=== PATIENT | male | born 1940 ===

== ENCOUNTER 2021-11-15 12:00 | Inpatient (IN) ==
[2021-11-16] MEDS ORDERED: Ondansetron ODT 4 MG TAB.RAPDIS PO PRN (14:14)
[2021-11-16] MEDS: Gabapentin 300 MG CAPSULE PO SCH ×2 (17:26→21:21)
[2021-11-16] MEDS: ALPRAZolam 1 MG TABLET PO SCH ×2 (17:26→21:21)
[2021-11-16 20:40] LABS: Adenovirus Not Detected (Not Detect); Bordetella Pertussis Not Detected (Not Detect); Chlamydophila pneumoniae Not Detected (Not Detect); Coronavirus 229E Not Detected (Not Detect); Coronavirus HKU1 Not Detected (Not Detect); Coronavirus NL63 Not Detected (Not Detect); Coronavirus OC43 Not Detected (Not Detect); Human Metapneumovirus Not Detected (Not Detect); Human Rhinovirus/Enterovirus Not Detected (Not Detect); Influenza A Subtype 2009 H1 Not Detected (Not Detect); Influenza B Not Detected (Not Detect); Mycoplasma pneumoniae Not Detected (Not Detect); Parainfluenza Virus 1 Not Detected (Not Detect); Parainfluenza Virus 2 Not Detected (Not Detect); Parainfluenza Virus 3 Not Detected (Not Detect); Parainfluenza Virus 4 Not Detected (Not Detect); Respiratory Syncytial Virus Not Detected (Not Detect)
[2021-11-16 20:46] LABS: SARS-CoV-2 DETECTED (Not Detect)
[2021-11-16] MEDS: Cefdinir 300 MG CAPSULE PO SCH (21:21)
[2021-11-17 04:52] LABS: Basophils # 0.1 K/mcL (0.0-0.2); Basophils % 0.4 %; Eosinophils # 0.1 K/mcL (0.0-0.6); Eosinophils % 0.7 %; Hematocrit 41.9 % (37.5-50.1); Hemoglobin 13.9 g/dL (12.9-16.9); Immature Granulocytes % 2.7 % (0-4); Lymphocytes # 1.6 K/mcL (0.6-4.6); Lymphocytes % 13.7 %; Mean Corpuscular HGB Conc 33.2 g/dL (31.6-35.5); Mean Corpuscular Hemoglobin 29.9 pg (28.0-33.3); Mean Corpuscular Volume 90.1 fL (83.0-100.0); Mean Platelet Volume 10.3 fL (9.4-12.4); Monocytes # 0.8 K/mcL (0.0-1.3); Neutrophils # 8.5 K/mcL (1.6-8.9); Platelet Count 189 K/mcL (140-400); Red Blood Count 4.65 M/mcL (4.19-5.50); Red Cell Distribution Width 13.1 % (11.5-14.5); Segmented Neutrophils % 75.5 %; White Blood Count 11.3 K/mcL (4.3-11.1)
[2021-11-17 05:07] LABS: BUN/Creatinine Ratio 36 (6-26); Blood Urea Nitrogen 21 mg/dL (8-23); Calcium 8.7 mg/dL (8.6-10.3); Carbon Dioxide 30 mEq/L (23-29); Chloride 100 mEq/L (98-107); Glucose 150 mg/dL (70-105); Osmolality,Calculated 290 (280-300); Potassium 3.7 mEq/L (3.5-5.1); Sodium 137 mEq/L (136-145)
[2021-11-17] MEDS: *HR* Enoxaparin 40 MG/0.4 ML SYRINGE SQ SCH (06:23)
[2021-11-17 08:18] LABS: Ferritin 393 ng/mL (20-250)
[2021-11-17] MEDS: Gabapentin 300 MG CAPSULE PO SCH ×3 (08:35→21:05)
[2021-11-17] MEDS: ALPRAZolam 1 MG TABLET PO SCH ×3 (08:35→21:06)
[2021-11-17] MEDS: hydroCHLOROthiazide 25 MG TABLET PO SCH (08:35)
[2021-11-17] MEDS: Cefdinir 300 MG CAPSULE PO SCH ×2 (08:35→21:06)
[2021-11-17] MEDS: *HR* GlipiZIDE XL (24 HR) 10 MG TABLET PO SCH (08:36)
[2021-11-17] MEDS: lisinopriL 10 MG TABLET PO SCH (08:36)
[2021-11-17] MEDS: dexAMETHasone 4 MG TABLET PO SCH (08:36)
[2021-11-17] MEDS: Aspirin Enteric Coated 81 MG Tablet PO SCH (08:36)
[2021-11-17] MEDS: atenoloL 50 MG TABLET PO SCH (08:36)
[2021-11-17] MEDS: allopurinoL 300 MG TABLET PO SCH (08:36)
[2021-11-17 08:44] LABS: C-Reactive Protein 13 mg/L (Less than 10)
[2021-11-17] MEDS ORDERED: Dextrose Gel 15 GM/37.5 ML TUBE PO PRN ×2 (11:22)
[2021-11-17] MEDS ORDERED: *HR* Dextrose 50 % in Water (Syg) 50 ML SYRINGE IVP PRN (11:22)
[2021-11-17] MEDS ORDERED: D5% in Water 1,000 ML IVC PRN (11:22)
[2021-11-17] MEDS: Insulin LISPRO 300 UNITS/3 ML VIAL SUBQ SCH ×2 (12:46→16:36)
[2021-11-17 14:54] LABS: Campylobacter by PCR Not detected (Not detect)
[2021-11-17 14:57] LABS: C.difficile Toxin A/B Gene PCR DETECTED (Not detect)
[2021-11-17 14:58] LABS: Adenovirus F 40/41 PCR Not detected (Not detect); Astrovirus PCR Not detected (Not detect); Cryptosporidium by PCR Not detected (Not detect); Cyclospora cayetanensis PCR Not detected (Not detect); Entamoeba histolytica PCR Not detected (Not detect); Enteroaggregative E.coli(EAEC) Not detected (Not detect); Enteropathogenic E.coli(EPEC) Not detected (Not detect); Enterotoxigenic E.coli (ETEC) Not detected (Not detect); Giardia lamblia PCR Not detected (Not detect); Norovirus GI/GII PCR Not detected (Not detect); Plesiomonas shigelloides PCR Not detected (Not detect); Rotavirus A PCR Not detected (Not detect); Salmonella PCR Not detected (Not detect); Sapovirus PCR Not detected (Not detect); Shig/EnteroinvasiveE coli EIEC Not detected (Not detect); Shigalike tox-prod E coli STEC Not detected (Not detect); Vibrio PCR Not detected (Not detect); Vibrio cholerae PCR Not detected (Not detect); Yersinia enterocolitica PCR Not detected (Not detect)
[2021-11-17] MEDS: Vancomycin Oral Soln 125 MG/2.5 ML UDC PO SCH ×2 (17:33→21:06)
[2021-11-17] MEDS: Lactobacillus 1 EACH CAP.SPRINK PO SCH (21:06)
[2021-11-18] MEDS: *HR* Enoxaparin 40 MG/0.4 ML SYRINGE SQ SCH (06:54)
[2021-11-18] MEDS: Insulin LISPRO 300 UNITS/3 ML VIAL SUBQ SCH ×3 (08:57→18:29)
[2021-11-18] MEDS: allopurinoL 300 MG TABLET PO SCH (08:58)
[2021-11-18] MEDS: ALPRAZolam 1 MG TABLET PO SCH ×3 (08:58→21:42)
[2021-11-18] MEDS: Cefdinir 300 MG CAPSULE PO SCH ×2 (08:58→21:42)
[2021-11-18] MEDS: Gabapentin 300 MG CAPSULE PO SCH ×3 (08:58→21:42)
[2021-11-18] MEDS: hydroCHLOROthiazide 25 MG TABLET PO SCH (08:58)
[2021-11-18] MEDS: Vancomycin Oral Soln 125 MG/2.5 ML UDC PO SCH ×4 (08:58→21:42)
[2021-11-18] MEDS: dexAMETHasone 4 MG TABLET PO SCH (08:59)
[2021-11-18] MEDS: lisinopriL 10 MG TABLET PO SCH (08:59)
[2021-11-18] MEDS: Lactobacillus 1 EACH CAP.SPRINK PO SCH ×2 (08:59→21:42)
[2021-11-18] MEDS: Aspirin Enteric Coated 81 MG Tablet PO SCH (08:59)
[2021-11-18] MEDS: *HR* GlipiZIDE XL (24 HR) 10 MG TABLET PO SCH (08:59)
[2021-11-18] MEDS: atenoloL 50 MG TABLET PO SCH (08:59)
[2021-11-19] MEDS: *HR* Enoxaparin 40 MG/0.4 ML SYRINGE SQ SCH (04:09)
[2021-11-19 04:29] LABS: Basophils % 0.2 %; Eosinophils # 0.1 K/mcL (0.0-0.6); Eosinophils % 0.6 %; Hematocrit 44.9 % (37.5-50.1); Immature Granulocytes % 1.6 % (0-4); Lymphocytes # 1.9 K/mcL (0.6-4.6); Mean Corpuscular HGB Conc 33.4 g/dL (31.6-35.5); Mean Corpuscular Hemoglobin 30.2 pg (28.0-33.3); Mean Corpuscular Volume 90.5 fL (83.0-100.0); Mean Platelet Volume 9.8 fL (9.4-12.4); Monocytes % 4.9 %; Neutrophils # 17.3 K/mcL (1.6-8.9); Platelet Count 213 K/mcL (140-400); Red Blood Count 4.96 M/mcL (4.19-5.50); Red Cell Distribution Width 13.3 % (11.5-14.5); Segmented Neutrophils % 83.7 %; White Blood Count 20.7 K/mcL (4.3-11.1)
[2021-11-19 04:46] LABS: BUN/Creatinine Ratio 29 (6-26); Blood Urea Nitrogen 20 mg/dL (8-23); Calcium 9.1 mg/dL (8.6-10.3); Carbon Dioxide 33 mEq/L (23-29); Chloride 96 mEq/L (98-107); Glucose 111 mg/dL (70-105); Osmolality,Calculated 283 (280-300); Potassium 4.2 mEq/L (3.5-5.1); Sodium 135 mEq/L (136-145)
[2021-11-19] MEDS: Insulin LISPRO 300 UNITS/3 ML VIAL SUBQ SCH ×3 (10:36→18:37)
[2021-11-19] MEDS: allopurinoL 300 MG TABLET PO SCH (10:37)
[2021-11-19] MEDS: lisinopriL 10 MG TABLET PO SCH (10:37)
[2021-11-19] MEDS: hydroCHLOROthiazide 25 MG TABLET PO SCH (10:37)
[2021-11-19] MEDS: *HR* GlipiZIDE XL (24 HR) 10 MG TABLET PO SCH (10:38)
[2021-11-19] MEDS: Gabapentin 300 MG CAPSULE PO SCH ×3 (10:38→20:51)
[2021-11-19] MEDS: atenoloL 50 MG TABLET PO SCH (10:38)
[2021-11-19] MEDS: Cefdinir 300 MG CAPSULE PO SCH (10:38)
[2021-11-19] MEDS: Lactobacillus 1 EACH CAP.SPRINK PO SCH ×2 (10:38→20:50)
[2021-11-19] MEDS: ALPRAZolam 1 MG TABLET PO SCH ×3 (10:38→20:51)
[2021-11-19] MEDS: Aspirin Enteric Coated 81 MG Tablet PO SCH (10:38)
[2021-11-19] MEDS: Vancomycin Oral Soln 125 MG/2.5 ML UDC PO SCH ×4 (10:39→20:51)
[2021-11-20 05:06] LABS: Basophils % 0.2 %; Eosinophils # 0.2 K/mcL (0.0-0.6); Eosinophils % 1.6 %; Hemoglobin 13.7 g/dL (12.9-16.9); Immature Granulocytes % 2.9 % (0-4); Lymphocytes # 1.6 K/mcL (0.6-4.6); Lymphocytes % 13.2 %; Mean Corpuscular HGB Conc 33.4 g/dL (31.6-35.5); Mean Corpuscular Hemoglobin 30.1 pg (28.0-33.3); Mean Corpuscular Volume 90.1 fL (83.0-100.0); Mean Platelet Volume 10.7 fL (9.4-12.4); Monocytes # 0.9 K/mcL (0.0-1.3); Neutrophils # 9.2 K/mcL (1.6-8.9); Platelet Count 185 K/mcL (140-400); Red Blood Count 4.55 M/mcL (4.19-5.50); Red Cell Distribution Width 13.4 % (11.5-14.5); Segmented Neutrophils % 75.1 %; White Blood Count 12.2 K/mcL (4.3-11.1)
[2021-11-20 05:16] LABS: BUN/Creatinine Ratio 35 (6-26); Blood Urea Nitrogen 24 mg/dL (8-23); Calcium 8.6 mg/dL (8.6-10.3); Carbon Dioxide 32 mEq/L (23-29); Chloride 97 mEq/L (98-107); Glucose 170 mg/dL (70-105); Osmolality,Calculated 288 (280-300); Potassium 3.2 mEq/L (3.5-5.1); Sodium 135 mEq/L (136-145)
[2021-11-20] MEDS: *HR* Enoxaparin 40 MG/0.4 ML SYRINGE SQ SCH (06:23)
[2021-11-20] MEDS: Vancomycin Oral Soln 125 MG/2.5 ML UDC PO SCH ×4 (08:41→21:51)
[2021-11-20] MEDS: ALPRAZolam 1 MG TABLET PO SCH ×3 (08:42→21:51)
[2021-11-20] MEDS: allopurinoL 300 MG TABLET PO SCH (08:42)
[2021-11-20] MEDS: *HR* GlipiZIDE XL (24 HR) 10 MG TABLET PO SCH (08:42)
[2021-11-20] MEDS: Gabapentin 300 MG CAPSULE PO SCH ×3 (08:42→21:51)
[2021-11-20] MEDS: Lactobacillus 1 EACH CAP.SPRINK PO SCH ×2 (08:42→21:51)
[2021-11-20] MEDS: atenoloL 50 MG TABLET PO SCH (08:42)
[2021-11-20] MEDS: hydroCHLOROthiazide 25 MG TABLET PO SCH (08:42)
[2021-11-20] MEDS: lisinopriL 10 MG TABLET PO SCH (08:42)
[2021-11-20] MEDS: Aspirin Enteric Coated 81 MG Tablet PO SCH (08:42)
[2021-11-20] MEDS: Insulin LISPRO 300 UNITS/3 ML VIAL SUBQ SCH ×3 (08:46→16:31)
[2021-11-21] MEDS: *HR* Enoxaparin 40 MG/0.4 ML SYRINGE SQ SCH (05:45)
[2021-11-21] MEDS: Lactobacillus 1 EACH CAP.SPRINK PO SCH ×2 (08:43→21:31)
[2021-11-21] MEDS: Vancomycin Oral Soln 125 MG/2.5 ML UDC PO SCH ×4 (08:43→21:30)
[2021-11-21] MEDS: Insulin LISPRO 300 UNITS/3 ML VIAL SUBQ SCH ×3 (08:43→16:44)
[2021-11-21] MEDS: hydroCHLOROthiazide 25 MG TABLET PO SCH (08:44)
[2021-11-21] MEDS: lisinopriL 10 MG TABLET PO SCH (08:44)
[2021-11-21] MEDS: allopurinoL 300 MG TABLET PO SCH (08:44)
[2021-11-21] MEDS: Gabapentin 300 MG CAPSULE PO SCH ×3 (08:44→21:31)
[2021-11-21] MEDS: Aspirin Enteric Coated 81 MG Tablet PO SCH (08:44)
[2021-11-21] MEDS: *HR* GlipiZIDE XL (24 HR) 10 MG TABLET PO SCH (08:44)
[2021-11-21] MEDS: atenoloL 50 MG TABLET PO SCH (08:44)
[2021-11-21] MEDS: ALPRAZolam 1 MG TABLET PO SCH ×3 (08:44→21:31)
[2021-11-21] MEDS: *HR* HYDROcodone/Acet 5/325 mg TABLET PO PRN (21:31)
[2021-11-22 04:29] LABS: Basophils % 0.3 %; Eosinophils # 0.2 K/mcL (0.0-0.6); Eosinophils % 1.7 %; Hematocrit 40.2 % (37.5-50.1); Hemoglobin 13.4 g/dL (12.9-16.9); Immature Granulocytes % 1.9 % (0-4); Lymphocytes # 2.1 K/mcL (0.6-4.6); Lymphocytes % 19.5 %; Mean Corpuscular HGB Conc 33.3 g/dL (31.6-35.5); Mean Corpuscular Hemoglobin 30.3 pg (28.0-33.3); Mean Platelet Volume 10.2 fL (9.4-12.4); Monocytes # 0.7 K/mcL (0.0-1.3); Neutrophils # 7.4 K/mcL (1.6-8.9); Platelet Count 168 K/mcL (140-400); Red Blood Count 4.42 M/mcL (4.19-5.50); Red Cell Distribution Width 13.3 % (11.5-14.5); Segmented Neutrophils % 69.6 %; White Blood Count 10.6 K/mcL (4.3-11.1)
[2021-11-22 04:45] LABS: Potassium 4.2 mEq/L (3.5-5.1)
[2021-11-22] MEDS: *HR* Enoxaparin 40 MG/0.4 ML SYRINGE SQ SCH (05:52)
[2021-11-22] MEDS: lisinopriL 10 MG TABLET PO SCH (09:22)
[2021-11-22] MEDS: hydroCHLOROthiazide 25 MG TABLET PO SCH (09:22)
[2021-11-22] MEDS: allopurinoL 300 MG TABLET PO SCH (09:22)
[2021-11-22] MEDS: atenoloL 50 MG TABLET PO SCH (09:22)
[2021-11-22] MEDS: Gabapentin 300 MG CAPSULE PO SCH ×3 (09:22→21:10)
[2021-11-22] MEDS: *HR* GlipiZIDE XL (24 HR) 10 MG TABLET PO SCH (09:22)
[2021-11-22] MEDS: ALPRAZolam 1 MG TABLET PO SCH ×3 (09:23→21:10)
[2021-11-22] MEDS: Lactobacillus 1 EACH CAP.SPRINK PO SCH ×2 (09:23→21:10)
[2021-11-22] MEDS: Aspirin Enteric Coated 81 MG Tablet PO SCH (09:24)
[2021-11-22] MEDS: Vancomycin Oral Soln 125 MG/2.5 ML UDC PO SCH ×4 (09:25→21:10)
[2021-11-22] MEDS: Insulin LISPRO 300 UNITS/3 ML VIAL SUBQ SCH ×3 (09:26→16:40)
[2021-11-22] MEDS: *HR* HYDROcodone/Acet 5/325 mg TABLET PO PRN (21:10)
[2021-11-23] MEDS: *HR* Enoxaparin 40 MG/0.4 ML SYRINGE SQ SCH (04:45)
[2021-11-23] MEDS: *HR* HYDROcodone/Acet 5/325 mg TABLET PO PRN ×2 (04:45→19:28)
[2021-11-23] MEDS: hydroCHLOROthiazide 25 MG TABLET PO SCH (08:11)
[2021-11-23] MEDS: ALPRAZolam 1 MG TABLET PO SCH ×3 (08:11→19:28)
[2021-11-23] MEDS: Vancomycin Oral Soln 125 MG/2.5 ML UDC PO SCH ×4 (08:11→19:27)
[2021-11-23] MEDS: atenoloL 50 MG TABLET PO SCH (08:12)
[2021-11-23] MEDS: lisinopriL 10 MG TABLET PO SCH (08:12)
[2021-11-23] MEDS: Aspirin Enteric Coated 81 MG Tablet PO SCH (08:12)
[2021-11-23] MEDS: allopurinoL 300 MG TABLET PO SCH (08:12)
[2021-11-23] MEDS: Gabapentin 300 MG CAPSULE PO SCH ×3 (08:13→19:27)
[2021-11-23] MEDS: Insulin LISPRO 300 UNITS/3 ML VIAL SUBQ SCH ×3 (08:13→16:22)
[2021-11-23] MEDS: Lactobacillus 1 EACH CAP.SPRINK PO SCH ×2 (08:13→19:28)
[2021-11-23] MEDS: *HR* GlipiZIDE XL (24 HR) 10 MG TABLET PO SCH (08:13)
[2021-11-24] MEDS: *HR* Enoxaparin 40 MG/0.4 ML SYRINGE SQ SCH (05:39)
[2021-11-24] MEDS: Gabapentin 300 MG CAPSULE PO SCH ×3 (08:08→20:46)
[2021-11-24] MEDS: lisinopriL 10 MG TABLET PO SCH (08:08)
[2021-11-24] MEDS: Lactobacillus 1 EACH CAP.SPRINK PO SCH ×2 (08:08→20:46)
[2021-11-24] MEDS: Aspirin Enteric Coated 81 MG Tablet PO SCH (08:08)
[2021-11-24] MEDS: allopurinoL 300 MG TABLET PO SCH (08:08)
[2021-11-24] MEDS: Vancomycin Oral Soln 125 MG/2.5 ML UDC PO SCH ×4 (08:09→20:48)
[2021-11-24] MEDS: *HR* GlipiZIDE XL (24 HR) 10 MG TABLET PO SCH (08:09)
[2021-11-24] MEDS: hydroCHLOROthiazide 25 MG TABLET PO SCH (08:09)
[2021-11-24] MEDS: Insulin LISPRO 300 UNITS/3 ML VIAL SUBQ SCH ×3 (08:09→16:18)
[2021-11-24] MEDS: atenoloL 50 MG TABLET PO SCH (08:09)
[2021-11-24] MEDS: ALPRAZolam 1 MG TABLET PO SCH ×3 (08:16→20:46)
[2021-11-24] MEDS: *HR* HYDROcodone/Acet 5/325 mg TABLET PO PRN (20:47)
[2021-11-25] MEDS: *HR* Enoxaparin 40 MG/0.4 ML SYRINGE SQ SCH (05:05)
[2021-11-25] MEDS: Aspirin Enteric Coated 81 MG Tablet PO SCH (08:52)
[2021-11-25] MEDS: *HR* GlipiZIDE XL (24 HR) 10 MG TABLET PO SCH (08:52)
[2021-11-25] MEDS: Lactobacillus 1 EACH CAP.SPRINK PO SCH ×2 (08:52→21:45)
[2021-11-25] MEDS: hydroCHLOROthiazide 25 MG TABLET PO SCH (08:52)
[2021-11-25] MEDS: allopurinoL 300 MG TABLET PO SCH (08:52)
[2021-11-25] MEDS: ALPRAZolam 1 MG TABLET PO SCH ×3 (08:53→21:46)
[2021-11-25] MEDS: Gabapentin 300 MG CAPSULE PO SCH ×3 (08:53→21:45)
[2021-11-25] MEDS: atenoloL 50 MG TABLET PO SCH (08:53)
[2021-11-25] MEDS: lisinopriL 10 MG TABLET PO SCH (08:53)
[2021-11-25] MEDS: Vancomycin Oral Soln 125 MG/2.5 ML UDC PO SCH ×4 (08:54→21:45)
[2021-11-25] MEDS: Insulin LISPRO 300 UNITS/3 ML VIAL SUBQ SCH ×3 (08:58→17:05)
[2021-11-25] MEDS: *HR* HYDROcodone/Acet 5/325 mg TABLET PO PRN (21:45)
[2021-11-26] MEDS: *HR* Enoxaparin 40 MG/0.4 ML SYRINGE SQ SCH (05:30)
[2021-11-26] MEDS: hydroCHLOROthiazide 25 MG TABLET PO SCH (08:46)
[2021-11-26] MEDS: ALPRAZolam 1 MG TABLET PO SCH ×3 (08:46→22:04)
[2021-11-26] MEDS: Lactobacillus 1 EACH CAP.SPRINK PO SCH ×2 (08:47→20:28)
[2021-11-26] MEDS: lisinopriL 10 MG TABLET PO SCH (08:47)
[2021-11-26] MEDS: Aspirin Enteric Coated 81 MG Tablet PO SCH (08:47)
[2021-11-26] MEDS: atenoloL 50 MG TABLET PO SCH (08:47)
[2021-11-26] MEDS: allopurinoL 300 MG TABLET PO SCH (08:47)
[2021-11-26] MEDS: Gabapentin 300 MG CAPSULE PO SCH ×3 (08:47→20:28)
[2021-11-26] MEDS: *HR* GlipiZIDE XL (24 HR) 10 MG TABLET PO SCH (08:47)
[2021-11-26] MEDS: Insulin LISPRO 300 UNITS/3 ML VIAL SUBQ SCH ×3 (08:55→16:19)
[2021-11-26] MEDS: Vancomycin Oral Soln 125 MG/2.5 ML UDC PO SCH ×4 (10:37→20:29)
[2021-11-26] MEDS: *HR* HYDROcodone/Acet 5/325 mg TABLET PO PRN (22:05)
[2021-11-27 04:41] LABS: Basophils % 0.4 %; Eosinophils # 0.1 K/mcL (0.0-0.6); Eosinophils % 1.5 %; Hemoglobin 12.5 g/dL (12.9-16.9); Immature Granulocytes % 0.7 % (0-4); Lymphocytes # 1.6 K/mcL (0.6-4.6); Lymphocytes % 21.9 %; Mean Corpuscular HGB Conc 32.9 g/dL (31.6-35.5); Mean Corpuscular Hemoglobin 30.1 pg (28.0-33.3); Mean Corpuscular Volume 91.6 fL (83.0-100.0); Mean Platelet Volume 10.1 fL (9.4-12.4); Monocytes # 0.6 K/mcL (0.0-1.3); Monocytes % 8.3 %; Neutrophils # 4.8 K/mcL (1.6-8.9); Platelet Count 156 K/mcL (140-400); Red Blood Count 4.15 M/mcL (4.19-5.50); Red Cell Distribution Width 13.5 % (11.5-14.5); Segmented Neutrophils % 67.2 %; White Blood Count 7.1 K/mcL (4.3-11.1)
[2021-11-27] MEDS: *HR* Enoxaparin 40 MG/0.4 ML SYRINGE SQ SCH (04:55)
[2021-11-27 05:54] LABS: BUN/Creatinine Ratio 30 (6-26); Blood Urea Nitrogen 19 mg/dL (8-23); Calcium 8.9 mg/dL (8.6-10.3); Carbon Dioxide 30 mEq/L (23-29); Chloride 100 mEq/L (98-107); Glucose 154 mg/dL (70-105); Osmolality,Calculated 287 (280-300); Potassium 4.1 mEq/L (3.5-5.1); Sodium 136 mEq/L (136-145)
[2021-11-27] MEDS: ALPRAZolam 1 MG TABLET PO SCH ×3 (08:07→20:17)
[2021-11-27] MEDS: Aspirin Enteric Coated 81 MG Tablet PO SCH (08:08)
[2021-11-27] MEDS: lisinopriL 10 MG TABLET PO SCH (08:08)
[2021-11-27] MEDS: Lactobacillus 1 EACH CAP.SPRINK PO SCH ×2 (08:08→20:17)
[2021-11-27] MEDS: allopurinoL 300 MG TABLET PO SCH (08:08)
[2021-11-27] MEDS: Gabapentin 300 MG CAPSULE PO SCH ×3 (08:08→20:17)
[2021-11-27] MEDS: hydroCHLOROthiazide 25 MG TABLET PO SCH (08:08)
[2021-11-27] MEDS: *HR* GlipiZIDE XL (24 HR) 10 MG TABLET PO SCH (08:08)
[2021-11-27] MEDS: atenoloL 50 MG TABLET PO SCH (08:09)
[2021-11-27] MEDS: Insulin LISPRO 300 UNITS/3 ML VIAL SUBQ SCH (08:09)
[2021-11-27] MEDS: Vancomycin Oral Soln 125 MG/2.5 ML UDC PO SCH ×3 (08:09→16:56)
[2021-11-28] MEDS: *HR* Enoxaparin 40 MG/0.4 ML SYRINGE SQ SCH (05:19)
[2021-11-28] MEDS: Aspirin Enteric Coated 81 MG Tablet PO SCH (08:25)
[2021-11-28] MEDS: allopurinoL 300 MG TABLET PO SCH (08:25)
[2021-11-28] MEDS: hydroCHLOROthiazide 25 MG TABLET PO SCH (08:25)
[2021-11-28] MEDS: atenoloL 50 MG TABLET PO SCH (08:25)
[2021-11-28] MEDS: lisinopriL 10 MG TABLET PO SCH (08:25)
[2021-11-28] MEDS: *HR* GlipiZIDE XL (24 HR) 10 MG TABLET PO SCH (08:25)
[2021-11-28] MEDS: Lactobacillus 1 EACH CAP.SPRINK PO SCH ×2 (08:25→21:14)
[2021-11-28] MEDS: Gabapentin 300 MG CAPSULE PO SCH ×3 (08:25→21:14)
[2021-11-28] MEDS: ALPRAZolam 1 MG TABLET PO SCH ×3 (08:25→21:15)
[2021-11-29] MEDS: *HR* Enoxaparin 40 MG/0.4 ML SYRINGE SQ SCH (05:39)
[2021-11-29 07:16] VITALS: BP 146/72; PULSE 68; RESP 17; TEMP 98.2; O2SAT 95
[2021-11-29] MEDS: ALPRAZolam 1 MG TABLET PO SCH (08:52)
[2021-11-29] MEDS: lisinopriL 10 MG TABLET PO SCH (08:52)
[2021-11-29] MEDS: hydroCHLOROthiazide 25 MG TABLET PO SCH (08:52)
[2021-11-29] MEDS: Aspirin Enteric Coated 81 MG Tablet PO SCH (08:52)
[2021-11-29] MEDS: allopurinoL 300 MG TABLET PO SCH (08:52)
[2021-11-29] MEDS: *HR* GlipiZIDE XL (24 HR) 10 MG TABLET PO SCH (08:52)
[2021-11-29] MEDS: Gabapentin 300 MG CAPSULE PO SCH (08:52)
[2021-11-29] MEDS: Lactobacillus 1 EACH CAP.SPRINK PO SCH (08:52)
[2021-11-29] MEDS: atenoloL 50 MG TABLET PO SCH (08:52)
== END 2021-11-29 13:21 | DRG 871 ==
LOC: INPGRE 11-16 13:39
PROVIDERS: ADMIT Family Medicine; ATTEND Family Medicine